=== PATIENT | female | born 1955 | race Two or more races ===

== ENCOUNTER 2020-04-28 19:58 | Emergency (ER) | payer BC ==
[~2020-04-28] VITALS: Ht 160 cm; Wt 90.7 kg
[2020-04-28 22:06] VITALS: BP 150/91
== END 2020-04-28 22:49 | disposition home or self-care (01) ==
LOC: ER 20:01
DX: R04.0 Epistaxis (principal); E11.9 Type 2 diabetes mellitus without complications